=== PATIENT | female | born 1950 ===

== ENCOUNTER 2024-01-17 13:02 | Outpatient (CLI) | payer OTHER | END 2024-01-17 13:04 | disposition home or self-care (01) | LOC: SONOGRAMA 13:02 | PROVIDERS: ATTEND Obstetrics & Gynecology | DX: R10.2 Pelvic and perineal pain (principal) ==

== ENCOUNTER 2025-03-18 13:23 | Outpatient (CLI) | payer OTHER ==
[2025-03-18 14:40] LABS: CREATININE SERUM 0.83 mg/dL (0.55-1.02)
== END 2025-03-18 13:24 | disposition home or self-care (01) ==
LOC: LAB 13:23
PROVIDERS: ATTEND Radiology Diagnostic Radiology
DX: R10.11 Right upper quadrant pain (principal)

== ENCOUNTER 2025-03-26 09:09 | Outpatient (CLI) | payer OTHER | END 2025-03-26 09:15 | disposition home or self-care (01) | LOC: TOM 09:09 | DX: R10.11 Right upper quadrant pain (principal); R19.01 Right upper quadrant abdominal swelling, mass and lump | CPT/HCPCS: 74178; Q9965 ==